=== PATIENT | female | born 2000 | race Caucasian/White ===

== ENCOUNTER 2021-03-26 21:52 | Emergency (ER) | payer SELFPAY ==
[~2021-03-26] VITALS: Ht 162.6 cm; Wt 68.0 kg
[2021-03-26 22:23] LABS: BILIRUBIN,URINE NEGATIVE (NEGATIVE); CLARITY,URINE CLEAR; COLOR,URINE YELLOW; GLUCOSE, URINE (UA) NEGATIVE (NEGATIVE); KETONES,URINE NEGATIVE (NEGATIVE); LEUKOCYTE ESTERASE ,URINE TRACE (NEGATIVE); NITRITE,URINE NEGATIVE (NEGATIVE); PH,URINE 6.5 (5-9); PROTEIN,URINE NEGATIVE (NEGATIVE)
[2021-03-26] MEDS ORDERED: ONDANSETRON 4 MG/2 ML (SDV) Z0FRAN IVP ONE (22:30)
[2021-03-26] MEDS ORDERED: NS IV 1000 ML 1,000 ML IV SCH (22:30)
[2021-03-26] MEDS ORDERED: KETOROLAC 30 MG/ML VIAL IVP ONE (22:30)
--- NOTE | 2021-03-26 22:30 | ED Abdominal Pain ---
General Chief Complaint: Abdominal/GI Problems Stated Complaint: COVID +, VOMITING,BODY ACHES,FEVER,HEADACHE Nursing Triage Note: PT AMBULATE TO ROOM 09 WITH C/O N/V/D, ABD PAIN STARTING TODAY. PT REPORTS RLQ ABD PAIN. PT REPORTS TESTING POS FOR COVID FRIDAY OF LAST WEEK. Source of Information: Patient Exam Limitations: No Limitations History of Present Illness Date Seen by Provider: Mar 26, 2021 Time Seen by Provider: 22:15 Initial Comments Patient is a 20-year-old female who presents to the emergency room today with a chief complaint of congestion, fever, body aches, nausea vomiting and right lower quadrant abdominal pain. Patient states she was diagnosed positive with Covid on March 20. She states she thought she should be getting better by now but today developed nausea and vomited multiple times and had a sudden onset of right lower quadrant abdominal pain. Patient has not taken any medications for the pain. She states moving around, walking, riding in the car make her pain worse. She has been taking azst-[id number] decongestants as well as some Tylen ol for her symptoms. She has a headache. She has lost taste. Denies shortness of breath, chest pain. Does have a little burning with urination onset today. Denies any abnormal vaginal discharge. All other review of systems reviewed and negative except as stated. Timing/Duration: 12-24 Hours Severity/Quality: Severe, Aching Location: RLQ Radiation: No Radiation Modifying Factors: Improves With Analgesics Associated Symptoms: Fever/Chills, Fatigue, Headache, Nausea/Vomiting Allergies and Home Medications Allergies Coded Allergies: No Known Allergies (Verified Allergy, Unknown, 03/26/21) Home Medications Cephalexin 500 Mg Tablet, 500 MG PO TID Prescribed by: JIM BEATTY on 03/26/21 [id number] Patient Home Medication List Home Medication List Reviewed: Yes Review of Systems Review of Systems Constitutional: see HPI EENTM: Nose Congestion Respiratory: No Symptoms Reported Cardiovascular: No Symptoms Reported Gastrointestinal: Abdominal Pain, Diarrhea, Nausea, Vomiting Genitourinary: Burning Musculoskeletal: muscle cramps Skin: no symptoms reported Psychiatric/Neurological: Headache All Other Systems Reviewed Negative Unless Noted: Yes Past Mgryjow-Cqarlj-Mkkvgr Hx Patient Social History Tobacco type used: Cigarettes Smoking Status: Current Everyday Smoker Substance use?: No Alcohol Use?: Yes Physical Exam Vital Signs Vital Signs - First Documented 03/26/21 22:03 Temp 36.7 Pulse 93 Resp 18 B/P (MAP) 113/74 (87) O2 Delivery Room Air Capillary Refill : Less Than 3 Seconds Height/Weight/BMI Height: '" Weight: lbs. oz. kg; 25.00 BMI Method: General Appearance: WD/WN, no apparent distress HEENT: PERRL/EOMI Neck: normal inspection Respiratory: lungs clear, normal breath sounds, no respiratory distress, no accessory muscle use Cardiovascular: regular rate, rhythm Gastrointestinal: soft, guarding, tenderness (voluntary and involuntary guarding) Extremities: normal inspection Neurologic/Psychiatric: alert, normal mood/affect, oriented x 3 Skin: normal color, warm/dry Progress/Results/Core Measures Results/Orders Lab Results Laboratory Tests Test 03/26/21 22:16 03/26/21 22:32 Range/Units Urine Color YELLOW Urine Clarity CLEAR Urine pH 6.5 5-9 Urine Specific [place] 1.025 H 1.016-1.022 Urine Protein NEGATIVE NEGATIVE Urine Glucose (UA) NEGATIVE NEGATIVE Urine Ketones NEGATIVE NEGATIVE Urine Nitrite NEGATIVE NEGATIVE Urine Bilirubin NEGATIVE NEGATIVE Urine Urobilinogen 1.0 < = 1.0 MG/DL Urine Leukocyte Esterase TRACE H NEGATIVE Urine RBC (Auto) NEGATIVE NEGATIVE Urine RBC NONE /HPF Urine WBC 2-5 /HPF Urine Squamous Epithelial Cells 5-10 /HPF Urine Crystals NONE /LPF Urine Bacteria FEW H /HPF Urine Casts NONE /LPF Urine Mucus SMALL H /LPF Urine Culture Indicated YES White Blood Count 7.5 4.3-11.0 10^3/uL Red Blood Count 5.26 H 3.80-5.11 10^6/uL Hemoglobin 15.4 11.5-16.0 g/dL Hematocrit 45 35-52 % Mean Corpuscular Volume 85 80-99 fL Mean Corpuscular Hemoglobin 29 25-34 pg Mean Corpuscular Hemoglobin Concent 35 32-36 g/dL Red Cell Distribution Width 11.3 10.0-14.5 % Platelet Count 270 130-400 10^3/uL Mean Platelet Volume 9.5 9.0-12.2 fL Immature Granulocyte % (Auto) 0 % Neutrophils (%) (Auto) 74 42-75 % Lymphocytes (%) (Auto) 20 12-44 % Monocytes (%) (Auto) 5 0-12 % Eosinophils (%) (Auto) 1 0-10 % Basophils (%) (Auto) 0 0-10 % Neutrophils # (Auto) 5.5 1.8-7.8 10^3/uL Lymphocytes # (Auto) 1.5 1.0-4.0 10^3/uL Monocytes # (Auto) 0.4 0.0-1.0 10^3/uL Eosinophils # (Auto) 0.1 0.0-0.3 10^3/uL Basophils # (Auto) 0.0 0.0-0.1 10^3/uL Immature Granulocyte # (Auto) 0.0 0.0-0.1 10^3/uL Sodium Level 139 135-145 MMOL/L Potassium Level 4.0 3.6-5.0 MMOL/L Chloride Level 107 98-107 MMOL/L Carbon Dioxide Level 19 L 21-32 MMOL/L Anion Gap 13 5-14 MMOL/L Blood Urea Nitrogen 8 7-18 MG/DL Creatinine 0.78 0.60-1.30 MG/DL Estimat Glomerular Filtration Rate 94 BUN/Creatinine Ratio 10 Glucose Level 104 70-105 MG/DL Calcium Level 9.5 8.5-10.1 MG/DL My Orders Orders - JIM BEATTY MD Ua Culture If Indicated (03/26/21 22:15) Urine Bedside (03/26/21 22:15) Ed Iv/Invasive Line Start (03/26/21 22:25) Cbc With Automated Diff (03/26/21 22:25) Basic Metabolic Panel (03/26/21 22:25) Ns Iv 1000 Ml (Sodium Chloride 0.9%) (03/26/21 22:30) Ondansetron Injection (Zofran Injectio (03/26/21 22:30) Ketorolac Injection (Toradol Injection) (03/26/21 22:30) Covid-19 External Lab Results (03/26/21 22:25) Isolation Central Supply Req (03/26/21 22:25) Urine Culture (03/26/21 22:16) Cephalexin Capsule (Keflex Capsule) (03/26/21 23:15) Medications Given in ED Current Medications Medications Dose Ordered Sig/Rosalina Route Start Time Stop Time Status Last Admin Dose Admin Cephalexin HCl 500 mg ONCE ONCE PO 03/26/21 23:15 03/26/21 23:17 DC 03/26/21 23:14 500 MG Ketorolac Tromethamine 15 mg ONCE ONCE IVP 03/26/21 22:30 03/26/21 22:31 DC 03/26/21 22:41 15 MG Ondansetron HCl 4 mg ONCE ONCE IVP 03/26/21 22:30 03/26/21 22:31 DC 03/26/21 22:40 4 MG Vital Signs/I&O 03/26/21 22:03 Temp 36.7 Pulse 93 Resp 18 B/P (MAP) 113/74 (87) O2 Delivery Room Air Blood Pressure Mean: 87 Progress Progress Note : Time: 23:40 Progress Note Patient looks well was fluid resuscitated with a liter of normal saline. Given some medications for headache and her first dose of antibiotics. Is comfortable with discharge home. All questions have been sought and answered. Patient is stable. Departure Impression Primary Impression: Abdominal pain Qualified Codes: R10.31 - Right lower quadrant pain Additional Impression: COVID-19 Disposition: 01 HOME, SELF-CARE Condition: Stable Departure-Patient Inst. Decision time for Depature: 23:41 Referrals: UNKNOWN (PCP/Family) Primary Care Physician Patient Instructions: COVID-19 (DC), Urinary Tract Infection, Adult (DC) Add. Discharge Instructions: Drink lots of fluids to stay well-hydrated. You can take [id number] Azo as needed for bladder spasm/pain with urination. I have sent a prescription for antibiotics to your pharmacy. Please take these until they are gone. Continue your quarantine as prescribed. Come back to the emergency room for any worsening symptoms, fevers, persistent vomiting, shortness of breath or other emergent concerns. Scripts Cephalexin (Cephalexin) 500 Mg Tablet 500 MG PO TID, #15 TAB Prov: JIM BEATTY MD 03/26/21 JIM BEATTY MD Mar 26, 2021 22:30
[2021-03-26 22:40] LABS: BACTERIA,URINE FEW /HPF
[2021-03-26 22:40] LABS: BASOPHILS % (AUTO) 0 % (0-10); EOSINOPHILS # (AUTO) 0.1 10^3/uL (0.0-0.3); EOSINOPHILS % (AUTO) 1 % (0-10); HEMATOCRIT 45 % (35-52); HEMOGLOBIN 15.4 g/dL (11.5-16.0); LYMPHOCYTES # (AUTO) 1.5 10^3/uL (1.0-4.0); LYMPHOCYTES % (AUTO) 20 % (12-44); MEAN CORPUSCULAR HEMOGLOBIN 29 pg (25-34); MEAN CORPUSCULAR HGB CONC 35 g/dL (32-36); MEAN CORPUSCULAR VOLUME 85 fL (80-99); MEAN PLATELET VOLUME 9.5 fL (9.0-12.2); MONOCYTES # (AUTO) 0.4 10^3/uL (0.0-1.0); MONOCYTES % (AUTO) 5 % (0-12); NEUTROPHILS # (AUTO) 5.5 10^3/uL (1.8-7.8); NEUTROPHILS % (AUTO) 74 % (42-75); PLATELET COUNT 270 10^3/uL (130-400); WHITE BLOOD COUNT 7.5 10^3/uL (4.3-11.0)
[2021-03-26 22:51] LABS: CALCIUM 9.5 MG/DL (8.5-10.1)
[2021-03-26 22:56] LABS: CREATININE SERUM 0.78 MG/DL (0.60-1.30)
[2021-03-26] MEDS ORDERED: CEPHALEXIN 250 MG (KEFLEX) CAP PO ONE (23:15)
[2021-03-26] MEDS ORDERED: CEPH500T PO (23:42)
[2021-03-26 23:45] VITALS: BP 114/69
== END 2021-03-26 23:45 | disposition home or self-care (01) ==
LOC: EDUNIT# 21:52 → ER 21:54
DX: U07.1 COVID-19 (principal); R10.31 Right lower quadrant pain; F17.210 Nicotine dependence, cigarettes, uncomplicated
CPT/HCPCS: 36415; 80048; 81000; 84703; 85025; 87088; 96361; 96374; 96375